=== PATIENT | female | born 1965 | race Asian ===

== ENCOUNTER → 2017-12-04 | Outpatient (CLI) | payer OTHER ==
--- NOTE | 2017-12-04 09:23 | Diagnostic Imaging Report ---
PROCEDURE:ABDOMINAL ULTRASOUND COMPARISON:None. INDICATION:LUQ Pain TECHNIQUE:Mccann scale color Doppler ultrasound FINDINGS: Imaged segments of the inferior vena cava and abdominal aorta are normal. Normal pancreas. Right liver span 12 cm. Normal liver. Portal vein diameter 0.9 cm; normal flow direction. Decompressed gallbladder. Wall thickness 2 mm. Common bile that diameter 2 mm. Right kidney: 10.8 x 4 x 4.9 cm. 1.1 x 0.9 x 1 cm simple right superior pole renal cyst. 1.5 x 1 x 1.4 cm mid simple cyst. Otherwise, normal. Left kidney: 10.8 x 4.7 x 4.8 cm. Normal kidney. Splenic length 10 cm. No ascites. CONCLUSION: Simple renal cysts. Otherwise, normal abdominal ultrasound. Dictated by: Deniz Martinez M.D. on 12/04/2017 at 9:23 Electronically approved by: Deniz Martinez M.D. on 12/04/2017 at 9:23
--- NOTE | 2017-12-05 18:10 | Diagnostic Imaging Report ---
#[id number] - MGSCRBIL #BILATERAL DIGITAL SCREENING MAMMOGRAM WITH CAD: 12/04/2017 CLINICAL: Routine screening. Comparison is made to exams dated: 11/21/2016 mammogram and 10/28/2016 mammogram - [facility]. Current study contains 4 films. The tissue of both breasts is extremely dense, which lowers the sensitivity of mammography. Current study was also evaluated with a Computer Aided Detection (CAD) system. No significant masses, calcifications, or other findings are seen in either breast. There has been no significant interval change. IMPRESSION: BENIGN There is no mammographic evidence of malignancy. A 1 year screening mammogram is recommended. The patient will be notified by letter of the results. Sean greene/yesika:12/05/2017 11:03:31 [employer]: Eli YU)(Maxine), [facility] letter sent: Compared to Prior B9 Mammogram BI-RADS: 2 Benign
== END ==
LOC: US 07:59
PROVIDERS: ATTEND Internal Medicine
DX: Z12.31 Encounter for screening mammogram for malignant neoplasm of breast (principal); R10.12 Left upper quadrant pain
CPT/HCPCS: 76700; 77067

== ENCOUNTER → 2018-03-09 | Day surgery (SDC) | payer OTHER ==
[~2018-03-09] MED LIST: ALENDRONATE SOD70 MG; LEVOCETIRIZINE D5 MG; PROPOFOL IV EMULSION 10 MG/ML 50 ML VIAL ONE; PROPRANOLOL HCL40 MG PO
== END | disposition home or self-care (01) ==
LOC: OR 11:05
PROVIDERS: ATTEND Internal Medicine Gastroenterology
DX: Z12.11 Encounter for screening for malignant neoplasm of colon (principal); I10 Essential (primary) hypertension; G43.909 Migraine, unspecified, not intractable, without status migrainosus; J45.909 Unspecified asthma, uncomplicated; Z01.810 Encounter for preprocedural cardiovascular examination; Z83.79 Family history of other diseases of the digestive system
CPT/HCPCS: 45378; 93005

== ENCOUNTER → 2018-11-06 | Outpatient (CLI) | payer OTHER ==
[~2018-11-06] MED LIST changes: -PROPOFOL IV EMULSION 10 MG/ML 50 ML VIAL ONE
--- NOTE | 2018-11-06 09:06 | Diagnostic Imaging Report ---
Exam: Bone mineral density study. History: Osteopenia. Comparison: October 28, 2016 Discussion: Evaluation of the left hip and lumbar spine was performed utilizing DEXA Hologic bone densitometer. The study is technically adequate. Left hip total bone mineral density: 0.847gm/cm2, T-score is -0.8, Z-score is -0.1. Left hip femoral neck bone mineral density: 0.746gm/cm2, T-score is -0.9, Z-score is 0.1. Lumbar spine total bone mineral density:0.854gm/cm2, T-score is-1.8, Z-score is -0.7. Impression: 1. Normal of the left hip, fracture risk is not increased. 2. Osteopenia of the lumbar spine, fracture risk is not increased. The BMD change versus baseline is -1.2% and the BMD change versus previous -1.2% . Least significant change (LSC) for bone mineral density as provided by light adjuster is 0.023 g/cm2 for lumbar spine and 0.027 g/cm2 for total hip. 10 -year fracture risk per WHO Fracture Risk Assessment Tool (FRAX) for: Not reported because patient treated for osteoporosis The patient's fracture risk is compared to an age-matched control. Medical evaluation for secondary causes of low bone bone mineral density may be appropriate. Correlate clinically for the necessity and timing of the next bone mineral density study. Signed by: Dr. Jeromy Guzman M.D. on 11/06/2018 9:02 AM
== END ==
LOC: DX 08:29
PROVIDERS: ATTEND Internal Medicine
DX: M81.0 Age-related osteoporosis without current pathological fracture (principal)
CPT/HCPCS: 77080

== ENCOUNTER → 2019-01-18 | Outpatient (CLI) | payer OTHER | LOC: MAMMO 07:22 | PROVIDERS: ATTEND Internal Medicine | DX: Z12.31 Encounter for screening mammogram for malignant neoplasm of breast (principal) | CPT/HCPCS: 77067 ==

== ENCOUNTER → 2020-03-07 | Outpatient (CLI) | payer OTHER ==
--- NOTE | 2020-03-07 13:40 | Diagnostic Imaging Report ---
EXAMINATION: CHEST 2 VIEWS INDICATION: Bronchitis COMPARISON: None FINDINGS: LINES/TUBES:None LUNGS:The lungs are well-inflated. No focal consolidation or pulmonary edema. PLEURA:No pleural effusion or pneumothorax. MEDIASTINUM:The cardiomediastinal silhouette appears normal in size and shape. BONES/SOFT TISSUES:No acute osseous injury. ABDOMEN:No free air under the diaphragm. IMPRESSION: No focal pneumonia or pulmonary edema. Signed by: Bimal Arreguin MD on 03/07/2020 1:37 PM
== END ==
LOC: RAD 08:55
PROVIDERS: ATTEND Internal Medicine
DX: J40 Bronchitis, not specified as acute or chronic (principal)
CPT/HCPCS: 71046

== ENCOUNTER → 2022-12-06 | Outpatient (CLI) | payer OTHER | LOC: MRI 08:11 | PROVIDERS: ATTEND Internal Medicine | DX: R07.89 Other chest pain (principal); M47.12 Other spondylosis with myelopathy, cervical region | CPT/HCPCS: 72141; 93005 ==